=== PATIENT | male | born 1950 | race Asian ===

== ENCOUNTER → 2024-12-16 11:47 | Outpatient (CLI) | payer MEDICARE, OTHER, SELFPAY ==
--- NOTE | 2024-12-16 11:55 | DI.RAD.S_ITS ---
PROCEDURE: XR LUMBAR SPINE 2-3V INDICATIONS: BACK/SHOULDER PAIN TECHNIQUE: 2 views of the lumbar spine were acquired. COMPARISON: None. FINDINGS AND IMPRESSION: 0.9 cm of L4 on L5 anterolisthesis is present. Moderate degenerative changes , with facet arthropathy, disc space height loss, and osteophytes. No definite acute fracture or traumatic subluxation. Partially seen hip degenerative changes. Vascular calcifications and moderate fecal loading. If there is high concern for further derangement, consider MRI evaluation. Dictated by: Duane Pascual M.D. on 12/16/2024 at 14:37 Approved by: Duane Pascual M.D. on 12/16/2024 at 14:38
--- NOTE | 2024-12-16 11:55 | DI.RAD.S_ITS ---
PROCEDURE: XR SHOULDER RT MIN 2V INDICATIONS: BACK/SHOULDER PAIN TECHNIQUE: 3 views of the shoulder were acquired. COMPARISON: None. FINDINGS AND IMPRESSION: Moderate glenohumeral and acromioclavicular arthrosis. Slight deformity at the superolateral humeral head, possibly from rotator cuff pathology versus prior Hill-Sachs. No dislocation. No suspicious soft tissue calcifications. If there is high concern for further derangement, consider MRI evaluation. Dictated by: Duane Pascual M.D. on 12/16/2024 at 14:38 Approved by: Duane Pascual M.D. on 12/16/2024 at 14:39
== END ==
LOC: RAD 11:54
PROVIDERS: PCP Internal Medicine
DX: M19.011 Primary osteoarthritis, right shoulder (principal); M25.511 Pain in right shoulder; M54.50 Low back pain, unspecified
CPT/HCPCS: 72100; 73030

== ENCOUNTER 2025-06-02 03:12 | Emergency (ER) | payer MEDICARE, OTHER, SELFPAY ==
[2025-06-02] VITALS (8 sets, daily range): BP systolic 134–154; BP diastolic 68–77; PULSE 69–81; RESP 16; TEMP 37; O2SAT 95–98; BMI 23.1
--- NOTE | 2025-06-02 04:07 | PC.NURSE ---
Patient states that he had a right shoulder cortisone injection on Monday05/29/25. Woke up the next morning with body hives, itching. 06/01/25 Started to have hiccups and burps. Cepical losengers helped some but unable to sleep due to constant hiccups.
--- NOTE | 2025-06-02 04:12 | ED_ITS ---
HPI - General Adult
--- NOTE | 2025-06-02 04:12 | ED.GENADULT ---
HPI - General Adult <Lewis Wallace MD - Last Filed: 06/02/25 16:33> General Chief complaint: Upper Respiratory Symptoms Stated complaint: has been burping for 3days, red spots on hands Time Seen by Provider: 06/02/25 03:55 Source: patient Mode of arrival: Ambulatory History of Present Illness HPI narrative: 74-year-old male had recent shoulder injection, also recent COVID/flu shot, now having persistent hiccups over the last couple of days. No fevers or chills. No history of blood clots to legs or lungs, no leg pain or swelling symptoms. No recent cough or pneumonia. No abdominal discomfort. No treatments tried for hiccup symptoms. He had red spots on his hands earlier that seemed to have resolved without specific treatment. No other skin changes recalled. Related Data Home Medications ?Medication ?Instructions ?Recorded ?Confirmed aspirin 81 mg tablet,delayed 81 mg PO DAILY 06/02/25 06/02/25 release diclofenac sodium 1 % topical gel 2.25 inch topical .as needed PRN 06/02/25 06/02/25 Pain hydrochlorothiazide 12.5 mg tablet 12.5 mg PO DAILY 06/02/25 06/02/25 ibuprofen 400 mg tablet 400 mg PO .as needed PRN pain 06/02/25 06/02/25 levothyroxine 100 mcg tablet 100 mcg PO DAILY 06/02/25 06/02/25 (Synthroid) lisinopril 40 mg tablet 40 mg PO DAILY 06/02/25 06/02/25 metformin 500 mg tablet 500 mg PO DAILY 06/02/25 06/02/25 sildenafil 100 mg tablet 100 mg PO DIRECTED 06/02/25 06/02/25 simvastatin 40 mg tablet 40 mg PO ONCE PM 06/02/25 06/02/25 tamsulosin 0.4 mg capsule (Flomax) 0.4 mg PO Q24H 06/02/25 06/02/25 Previous Rx's ?Medication ?Instructions ?Recorded apixaban 5 mg (74 tabs) tablets in See Rx Instructions PO .COMPLEX 06/02/25 a dose pack #74 ea metoclopramide HCl 10 mg tablet 10 mg PO Q6H PRN nausea and 06/02/25 (Reglan) vomiting #14 tabs Allergies Allergy/AdvReac Type Severity Reaction Status Date / Time Sulfa (Sulfonamide Allergy Mild Rash Verified 06/02/25 03:54 Antibiotics) Patient History <Lewis Wallace MD - Last Filed: 06/02/25 16:33> Social History Smoking Status: Former smoker Smoking Status: Former smoker Exam <Lewis Wallace MD - Last Filed: 06/02/25 16:33> Narrative Exam Narrative: GENERAL: Well-developed patient, in mild distress. Frequent hiccups noted. HEAD: Atraumatic. Normocephalic. EYES: Pupils equal round and reactive. Extraocular motions intact. No scleral icterus. No injection or drainage. ENT: No obvious craniofacial trauma. Airway patent. NECK: Trachea midline. Non tender CARDIOVASCULAR: Regular rate and rhythm without murmurs, gallops, or rubs. RESPIRATORY: Clear to auscultation. Breath sounds equal bilaterally. No wheezes, rales, or rhonchi. GASTROINTESTINAL: Abdomen soft, non-tender, nondistended. EXTREMITIES: No edema or joint tenderness. BACK: Nontender without deformity or crepitance. No flank tenderness. NEURO: AOx3. Motor functions grossly nonfocal. SKIN: No rash or erythema of visible areas Initial Vital Signs Initial Vital Signs: Vital Signs Temperature 98.6 F 06/02/25 03:58 Pulse Rate 81 06/02/25 03:58 Respiratory Rate 16 06/02/25 03:58 Blood Pressure 146/77 H 06/02/25 03:58 Pulse Oximetry 97 06/02/25 03:58 Oxygen Delivery Method Room Air 06/02/25 03:58 <Mackenzie Lujan DO - Last Filed: 06/02/25 16:08> Initial Vital Signs Initial Vital Signs: Vital Signs Temperature 98.6 F 06/02/25 03:58 Pulse Rate 81 06/02/25 03:58 Respiratory Rate 16 06/02/25 03:58 Blood Pressure 146/77 H 06/02/25 03:58 Pulse Oximetry 97 06/02/25 03:58 Oxygen Delivery Method Room Air 06/02/25 03:58 Course <Lewis Wallace MD - Last Filed: 06/02/25 16:33> Orders Ordered: ED Orders 06/02/25 07:56 EKG-12 Lead Stat Discontinued Medications Al Hydrox/Mg Hydrox/Simethicone (Mag Hydrox/Alum/Simeth 30 Ml Udc) 30 ml PO NOW ONE Stop: 06/02/25 04:32 Last Admin: 06/02/25 04:36 Dose: 30 ml Documented By: Apixaban (Apixaban 5 Mg Tablet) 10 mg PO NOW ONE Stop: 06/02/25 08:47 Last Admin: 06/02/25 08:54 Dose: 10 mg Documented By: ALEJO Heparin Sodium (Porcine) (Heparin 5,000 Unit/Ml Vial) 5,500 unit 80 unit/kg (5500 unit) IV NOW ONE Stop: 06/02/25 06:45 Last Admin: 06/02/25 07:00 Dose: 5,500 unit Documented By: Lactated Ringer's (Lactated Ringers) 1,000 mls @ 1,000 mls/hr IV BOLUS ONE Stop: 06/02/25 06:32 Last Infusion: 06/02/25 06:50 Dose: Infused Documented By: Admin: 06/02/25 05:53 Dose: 1,000 mls/hr Documented By: Heparin Sodium/Dextrose (Heparin Drip) 25,000 unit in 500 mls @ 25.637 mls/hr IV CONT AMA; Protocol Last Admin: 06/02/25 07:04 Dose: 18 units/kg/hr, 25.637 mls/hr Documented By: Co-signed By: GABBIE Metoclopramide HCl (Metoclopramide 10 Mg/2 Ml Inj) 10 mg IV NOW ONE Stop: 06/02/25 08:36 Last Admin: 06/02/25 08:54 Dose: 10 mg Documented By: ALEJO Vital Signs Vital signs: Vital Signs - 8 hr 06/02/25 08:30 06/02/25 08:30 06/02/25 08:58 Pulse Rate 71 70 Blood Pressure 135/68 Pulse Oximetry 97 98 06/02/25 09:00 06/02/25 09:05 Pulse Rate 80 Blood Pressure 136/72 Pulse Oximetry 96 <Mackenzie Lujan, - Last Filed: 06/02/25 16:08> Orders Ordered: ED Orders 06/02/25 07:56 EKG-12 Lead Stat Discontinued Medications Al Hydrox/Mg Hydrox/Simethicone (Mag Hydrox/Alum/Simeth 30 Ml Udc) 30 ml PO NOW ONE Stop: 06/02/25 04:32 Last Admin: 06/02/25 04:36 Dose: 30 ml Documented By: Apixaban (Apixaban 5 Mg Tablet) 10 mg PO NOW ONE Stop: 06/02/25 08:47 Last Admin: 06/02/25 08:54 Dose: 10 mg Documented By: ALEJO Heparin Sodium (Porcine) (Heparin 5,000 Unit/Ml Vial) 5,500 unit 80 unit/kg (5500 unit) IV NOW ONE Stop: 06/02/25 06:45 Last Admin: 06/02/25 07:00 Dose: 5,500 unit Documented By: Lactated Ringer's (Lactated Ringers) 1,000 mls @ 1,000 mls/hr IV BOLUS ONE Stop: 06/02/25 06:32 Last Infusion: 06/02/25 06:50 Dose: Infused Documented By: Admin: 06/02/25 05:53 Dose: 1,000 mls/hr Documented By: Heparin Sodium/Dextrose (Heparin Drip) 25,000 unit in 500 mls @ 25.637 mls/hr IV CONT AMA; Protocol Last Admin: 06/02/25 07:04 Dose: 18 units/kg/hr, 25.637 mls/hr Documented By: Co-signed By: GABBIE Metoclopramide HCl (Metoclopramide 10 Mg/2 Ml Inj) 10 mg IV NOW ONE Stop: 06/02/25 08:36 Last Admin: 06/02/25 08:54 Dose: 10 mg Documented By: ALEJO Vital Signs Vital signs: Vital Signs - 8 hr 06/02/25 08:30 06/02/25 08:30 06/02/25 08:58 Pulse Rate 71 70 Blood Pressure 135/68 Pulse Oximetry 97 98 06/02/25 09:00 06/02/25 09:05 Pulse Rate 80 Blood Pressure 136/72 Pulse Oximetry 96 Medical Decision Making <Lewis Wallace MD - Last Filed: 06/02/25 16:33> Lab Data Lab results reviewed: Yes I reviewed the patient's lab results. Lab results narrative: White blood cell count 8200, hemoglobin 14.5, platelets adequate. Glucose 122. Normal renal function, serum CO2, electrolytes. Liver functions and lipase normal. D-dimer 1787 elevated. 06/02/25 04:40 06/02/25 04:40 Labs: Lab Results 06/02/25 Range/Units 04:40 WBC 8.2 (4.5-11.0) X10^3/uL RBC 5.37 (4.5-5.9) X10^6/uL Hgb 14.5 (13.5-17.5) g/dL Hct 44.0 (41-53) % MCV 82.0 (80-100) fL MCH 27.0 (26-34) PG MCHC 32.9 (30-36) % RDW 13.4 (11.6-14.8) % Plt Count 228 (150-400) X10^3/uL Neut % (Auto) 76.6 H (50-75) % Lymph % (Auto) 11.8 L (25-40) % [place] % (Auto) 7.9 (3-14) % Eos % (Auto) 2.2 (2-4) % Baso % (Auto) 1.5 (0-2) % Neut # (Auto) 6300 (8026-8932) /uL Lymph # (Auto) 1000 L (6265-0339) /uL [place] # (Auto) 700 (0-900) /uL Eos # (Auto) 200 (0-450) /uL Baso # (Auto) 100 (0-100) /uL APTT 30 (25.1-36.5) SECONDS D-Dimer 1787 H (<500) ng/ml Sodium 137 (137-145) mmol/L Potassium 3.9 (3.4-5.1) mmol/L Chloride 103 (98-107) mmol/L Carbon Dioxide 24 (22-32) mmol/L BUN 16 (9-20) mg/dL Creatinine 0.92 (0.66-1.25) mg/dL Estimated GFR > 60 (>60) mL/min BUN/Creatinine Ratio 17.4 (6-22) Glucose 122 H (70-99) mg/dL Calcium 9.7 (8.4-10.2) mg/dL Total Bilirubin 0.6 (0.2-1.3) mg/dL AST 31 (17-59) IU/L ALT 27 (<50) IU/L Alkaline Phosphatase 77 (38-126) U/L Troponin I < 0.012 (0.01-0.034) ng/mL NT-Pro-B Natriuret Pep 82 (<125) pg/mL Total Protein 7.6 (6.3-8.2) g/dL Albumin 4.5 (3.5-5.0) g/dL Globulin 3.1 (1.7-4.1) g/dL Albumin/Globulin Ratio 1.5 (1.0-2.8) Lipase 86 (23-300) U/L MDM Narrative Medical decision making narrative: 74-year-old male with 2-3 days duration hiccups persisting. Recent shoulder injection was steroid. Recent COVID/flu vaccination. Afebrile on triage, vitals unremarkable. Exam remarkable for frequent hiccups. Chest x-ray and labs pending. Screen for electrolyte abnormalities, acute pneumonia changes. We will add D-dimer, consider pulmonary embolism. Chest x-ray. Impressions: ?No acute findings. ? See tele radiology report. Lab data: White blood cell count 8200, hemoglobin 14.5, platelets adequate. Glucose 122. Normal renal function, serum CO2, electrolytes. Liver functions and lipase normal. D-dimer added, was 1787 elevated. D-dimer elevated, GFR favorable. CTA chest study ordered. CTA chest study. Impressions: ?There are questionable pulmonary emboli within the right lower lobe subsegmental branches best seen on images 116 and 117 of series 4, and imaged number 85 of series 7. Severe coronary artery calcifications. 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 Please confirm with a dedicated outpatient hepatic protocol CT.? See tele radiology report. Ultrasound venous Doppler bilateral legs listed to help confirm VTE. Await over-read from [facility] radiology to see if they also suspect right sided pulmonary emboli. We will start IV heparin bolus/infusion per VTE protocol for now, pending above over-read, and pending venous Doppler study report. Patient hemodynamically stable, no oxygen requirement, no tachycardia, if PEs confirmed perhaps patient might be candidate for outpatient treatment. Also consider treatment for persisting hiccups, briefly we did discuss first-line options (per review on Rx of persistant hiccups on [employer]) that might include Reglan or Baclofen or Gabapentin. Thorazine could be considered but has increased side effect profile, not considered first line. 0700, signed out Dr Lujan. 06/02/25 Dr. Lujan: Patient signed out to myself for intractable hiccups for 3 days patient overnight had workup which did show possible pulmonary emboli right lower lobe segmental branches, severe coronary artery calcifications multiple small hepatic hypodensities consistent with sits and hemangiomata. DVT ultrasound is negative. Chest x-ray was negative for acute change. Labs reviewed, patient had predominance of neutrophils but normal white count, hemoglobin and platelets. Dimer was elevated at [address] angio, electrolytes BUN creatinine were all normal LFTs were normal glucose is 122. Troponin/BNP added on and are both negative. EKG sinus rhythm rate of 65 FL 158 QRS 80 QTC of 391. No acute ST-elevation depression noted. No prior for comparison. PESI score, 82 , low risk class two. Hestia criteria patient is low risk Patient was started on heparin by overnight provider. Spoke with pharmacy can turn off heparin drip and immediately start DOAC. Patient continues to have hiccups but appears appropriate for discharge he notes his main symptom is hiccups it started but has been more persistent. Reviewed all of his findings there was possible pulmonary emboli which could be irritating his diaphragm and prompting his symptoms. No other clear source he has felt appropriate for discharge home we will try a dose of Reglan here in the department. We will send a prescription to see if this is helpful have patient follow up this week with primary care. We also discussed return precautions all questions answered. <Mackenzie Lujan DO - Last Filed: 06/02/25 16:08> Lab Data Labs: Lab Results 06/02/25 Range/Units 04:40 WBC 8.2 (4.5-11.0) X10^3/uL RBC 5.37 (4.5-5.9) X10^6/uL Hgb 14.5 (13.5-17.5) g/dL Hct 44.0 (41-53) % MCV 82.0 (80-100) fL MCH 27.0 (26-34) PG MCHC 32.9 (30-36) % RDW 13.4 (11.6-14.8) % Plt Count 228 (150-400) X10^3/uL Neut % (Auto) 76.6 H (50-75) % Lymph % (Auto) 11.8 L (25-40) % [place] % (Auto) 7.9 (3-14) % Eos % (Auto) 2.2 (2-4) % Baso % (Auto) 1.5 (0-2) % Neut # (Auto) 6300 (8647-3967) /uL Lymph # (Auto) 1000 L (2548-5993) /uL [place] # (Auto) 700 (0-900) /uL Eos # (Auto) 200 (0-450) /uL Baso # (Auto) 100 (0-100) /uL APTT 30 (25.1-36.5) SECONDS D-Dimer 1787 H (<500) ng/ml Sodium 137 (137-145) mmol/L Potassium 3.9 (3.4-5.1) mmol/L Chloride 103 (98-107) mmol/L Carbon Dioxide 24 (22-32) mmol/L BUN 16 (9-20) mg/dL Creatinine 0.92 (0.66-1.25) mg/dL Estimated GFR > 60 (>60) mL/min BUN/Creatinine Ratio 17.4 (6-22) Glucose 122 H (70-99) mg/dL Calcium 9.7 (8.4-10.2) mg/dL Total Bilirubin 0.6 (0.2-1.3) mg/dL AST 31 (17-59) IU/L ALT 27 (<50) IU/L Alkaline Phosphatase 77 (38-126) U/L Troponin I < 0.012 (0.01-0.034) ng/mL NT-Pro-B Natriuret Pep 82 (<125) pg/mL Total Protein 7.6 (6.3-8.2) g/dL Albumin 4.5 (3.5-5.0) g/dL Globulin 3.1 (1.7-4.1) g/dL Albumin/Globulin Ratio 1.5 (1.0-2.8) Lipase 86 (23-300) U/L ECG Data Attestation: I personally reviewed and interpreted this ECG as follows: Interpretation: EKG sinus rhythm rate of 65 FL 158 QRS 80 QTC of 391.? No acute ST-elevation depression noted.? No prior for comparison. MDM Narrative Medical decision making narrative: 74-year-old male with 2-3 days duration hiccups persisting. Recent shoulder injection was steroid. Recent COVID/flu vaccination. Afebrile on triage, vitals unremarkable. Exam remarkable for frequent hiccups. Chest x-ray and labs pending. Screen for electrolyte abnormalities, acute pneumonia changes. We will add D-dimer, consider pulmonary embolism. Chest x-ray. Impressions: ?No acute findings. ? See tele radiology report. Lab data: White blood cell count 8200, hemoglobin 14.5, platelets adequate. Glucose 122. Normal renal function, serum CO2, electrolytes. Liver functions and lipase normal. D-dimer 1787 elevated. D-dimer elevated, GFR favorable. CTA chest study ordered. CTA chest study. Impressions: ?There are questionable pulmonary emboli within the right lower lobe subsegmental branches best seen on images 116 and 117 of series 4, and imaged number 85 of series 7. Severe coronary artery calcifications. 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 Please confirm with a dedicated outpatient hepatic protocol CT.? See tele radiology report. Ultrasound venous Doppler bilateral legs listed to help confirm VTE. Await over-read from [facility] radiology to see if they also suspect right sided pulmonary emboli. We will start IV heparin bolus/infusion per VTE protocol for now, pending above over-read and venous Doppler study reports. Patient hemodynamically stable, no oxygen requirement, no tachycardia, if PEs confirmed perhaps patient might be candidate for outpatient treatment. Also consider treatment for persisting hiccups, briefly we did discuss first-line options that might include Reglan or baclofen or gabapentin. Thorazine could be considered as well but has increased side effect profile. 0700, signed out Dr Lujan 06/02/25 Dr. Lujan: Patient signed out to myself for intractable hiccups for 3 days patient overnight had workup which did show possible pulmonary emboli right lower lobe segmental branches, severe coronary artery calcifications multiple small hepatic hypodensities consistent with sits and hemangiomata. DVT ultrasound is negative. Chest x-ray was negative for acute change. Labs reviewed, patient had predominance of neutrophils but normal white count, hemoglobin and platelets. Dimer was elevated at [address] angio, electrolytes BUN creatinine were all normal LFTs were normal glucose is 122. Troponin/BNP added on and are both negative. EKG sinus rhythm rate of 65 FL 158 QRS 80 QTC of 391. No acute ST-elevation depression noted. No prior for comparison. PESI score, 82 , low risk class two. Hestia criteria patient is low risk Patient was started on heparin by overnight provider. Spoke with pharmacy can turn off heparin drip and immediately start DOAC. Patient continues to have hiccups but appears appropriate for discharge he notes his main symptom is hiccups it started but has been more persistent. Reviewed all of his findings there was possible pulmonary emboli which could be irritating his diaphragm and prompting his symptoms. No other clear source he has felt appropriate for discharge home we will try a dose of Reglan here in the department. We will send a prescription to see if this is helpful have patient follow up this week with primary care. We also discussed return precautions all questions answered. Discharge Plan Departure Patient Disposition: Home Clinical Impression: Intractable hiccups, Pulmonary embolism Instructions: DI for Pulmonary Embolism, DI for Hiccups Activity Restrictions/Additional Instructions: Follow up with your primary care physician, please call today to set up a follow up appointment. I suspect your hiccups are due to the small right lower lobe pulmonary embolism seen on your CT today, incidentally they note advanced coronary artery atherosclerotic calcifications and several cysts and hemangiomas in the liver. You can try Reglan 1 tablet every 6 hours, this isn't antiemetic but can sometimes be helpful for hiccups. I would ask that you stop your aspirin and take the apixaban as prescribed. Take 2 tablets twice daily times 7 days then 1 tablet twice daily afterwards. Prescription for both the Reglan in the apixaban was sent to the [facility] pharmacy. If for some reason this medication is not covered by your insurance or as extremely expensive has a pharmacy call and we can change it. If you develop new chest pain or shortness of breath, any lightheadedness or passing out, persistent vomiting or other new or concerning changes return to the emergency department. Prescriptions: New apixaban 5 mg (74 tabs) tablets,dose pack See Rx Instructions .ROUTE .COMPLEX Qty: 74 0RF Rx Instructions: Take 10 mg (2 tablets) twice daily x7 days, then 5 mg (1 tablet) twice daily metoclopramide HCl [Reglan] 10 mg tablet 10 mg PO Q6H PRN (Reason: nausea and vomiting) Qty: 14 0RF No Action aspirin 81 mg tablet,delayed release (DR/EC) 81 mg PO DAILY diclofenac sodium 1 % gel 2.25 inch topical .as needed PRN (Reason: Pain) ibuprofen 400 mg tablet 400 mg PO .as needed PRN (Reason: pain) hydrochlorothiazide 12.5 mg tablet 12.5 mg PO DAILY metformin 500 mg tablet 500 mg PO DAILY sildenafil 100 mg tablet 100 mg PO DIRECTED levothyroxine [Synthroid] 100 mcg tablet 100 mcg PO DAILY lisinopril 40 mg tablet 40 mg PO DAILY simvastatin 40 mg tablet 40 mg PO ONCE PM tamsulosin [Flomax] 0.4 mg capsule 0.4 mg PO Q24H Referrals: Héctor Gu MD [Primary Care Provider, Internal Medicine] Stand Alone Forms: Patient Portal/API
--- NOTE | 2025-06-02 04:18 | DI.RAD.S_ITS ---
PROCEDURE: XR CHEST 1V
[2025-06-02] MEDS: MAG HYDROX/ALUM/SIMETH 30 ML UDC PO (04:36)
[2025-06-02 04:53] LABS: Add Manual Diff / Slide Review NO; Hematocrit 44.0 % (41-53); Hemoglobin 14.5 g/dL (13.5-17.5); Lymphocytes Absolute Auto 1000 /uL (1100-4500); Mean Corpuscular HGB Conc 32.9 % (30-36); Mean Corpuscular Hemoglobin 27.0 PG (26-34); Mean Corpuscular Volume 82.0 fL (80-100); Platelet Count 228 X10^3/uL (150-400)
[2025-06-02 05:09] LABS: Alanine Aminotransferase 27 IU/L (<50); Albumin 4.5 g/dL (3.5-5.0); Albumin Globulin Ratio 1.5 (1.0-2.8); Alkaline Phosphatase 77 U/L (38-126); Blood Urea Nitrogen 16 mg/dL (9-20); Calcium 9.7 mg/dL (8.4-10.2); Carbon Dioxide 24 mmol/L (22-32); Chloride 103 mmol/L (98-107); Estimated Glomerular Filt Rate > 60 mL/min (>60); Globulin 3.1 g/dL (1.7-4.1); Glucose 122 mg/dL (70-99); Lipase 86 U/L (23-300); Potassium 3.9 mmol/L (3.4-5.1); Sodium 137 mmol/L (137-145); Total Protein 7.6 g/dL (6.3-8.2)
[2025-06-02 05:12] LABS: HEMOLYSIS 64 (0-50)
--- NOTE | 2025-06-02 05:32 | DI.CT.S_ITS ---
PROCEDURE: CT ANGIO CHEST PE PROTOCOL
[2025-06-02] MEDS: LACTATED RINGERS 1,000 ML 1000 ML IV (05:53)
--- NOTE | 2025-06-02 06:42 | DI.US.S_ITS ---
PROCEDURE: US PERIPH VENOUS LOW EXTREM BI
[2025-06-02] MEDS: HEPARIN 5,000 UNIT/ML VIAL 5500 UNIT IV (07:00)
[2025-06-02] MEDS: HEPARIN DRIP 25,000 UNIT/500 ML IV.SOLN 25.637 UNIT IV (07:04)
[2025-06-02 07:06] LABS: PTT Partial Thromboplastin Tim 30 SECONDS (25.1-36.5)
[2025-06-02 08:23] LABS: NT-proBNP (BNP-Adult 18+) 82 pg/mL (<125); Troponin I < 0.012 ng/mL (0.01-0.034)
[2025-06-02] MEDS: METOCLOPRAMIDE 10 MG/2 ML INJ IV (08:54)
[2025-06-02] MEDS: APIXABAN 5 MG TABLET 10 MG PO (08:54)
== END 2025-06-02 09:17 | disposition home or self-care (01) ==
PROVIDERS: Emergency Medicine; Emergency Provider Emergency Medicine; PCP Internal Medicine
DX: I26.99 Other pulmonary embolism without acute cor pulmonale (principal); R06.6 Hiccough
CPT/HCPCS: 36415; 71045; 71275; 80053; 83690; 83880; 84484; 85025; 85379; 85730; 93005; 93970; 96361; 96374; 96375; 99284; 99285; J1644; J2765; J7120; Q9967